=== PATIENT | female | born 1995 | race Hispanic/Latino ===

== ENCOUNTER 2024-10-21 19:57 | Emergency (ER) | payer SELFPAY ==
[~2024-10-21] VITALS: Ht 154.9 cm; Wt 108.4 kg
[2024-10-21 20:36] LABS: BASOPHILS # (AUTO) 0.07 K/uL (0.00-0.20); BASOPHILS % (AUTO) 0.6 % (0.0-5.0); EOSINOPHILS # (AUTO) 0.22 K/uL (0.00-0.70); HEMATOCRIT 38.7 % (36-48); IMMATURE GRANULOCYTE ABSOLUTE 0.04 K/uL (0-1); LYMPHOCYTES # (AUTO) 3.2 K/uL (1.0-4.8); LYMPHOCYTES % (AUTO) 29.5 % (21.0-51.0); MEAN CORPUSCULAR HEMOGLOBIN 29.4 pg (27.0-33.0); MEAN CORPUSCULAR HGB CONC 33.1 g/dL (32.0-36.0); MEAN CORPUSCULAR VOLUME 88.8 fL (79-99); MONOCYTES # (AUTO) 0.6 K/uL (0.1-1.0); MONOCYTES % (AUTO) 5.6 % (3.0-13.0); NEUTROPHILS # (AUTO) 6.7 K/uL (1.8-7.7); NEUTROPHILS % (AUTO) 61.9 % (40.0-77.0); PLATELET COUNT (AUTO) 312 K/uL (130-400); RED BLOOD CELL COUNT(AUTO) 4.36 MIL/uL (4.00-5.50); WHITE BLOOD COUNT (AUTO) 10.8 K/uL (4.8-10.8)
--- NOTE | 2024-10-21 20:44 | HMCIMG ---
Exam Type: US ABDOMINAL RUQ\E\LTD Clinical Information: Adominal Pain Comparison: None Findings: The liver shows fatty infiltration and is enlarged, measuring 16.6 cm and is otherwise unremarkable. Doppler evaluation shows patent portal and hepatic veins. The gallbladder shows no significant abnormalities. Specifically, no calculi are seen. No bile duct dilatation is noted. The gallbladder wall measures 2 mm. The common bile duct measures 5 mm. The right kidney measures 10.7 x 5.2 cm- it shows no hydronephrosis or calculi, masses or other abnormalities. The pancreas is suboptimally visualized.. The aorta and inferior vena cava show no significant abnormalities. IMPRESSION: FATTY LIVER INFILTRATION AND HEPATOMEGALY. OTHERWISE NORMAL RIGHT UPPER QUADRANT ABDOMINAL ULTRASOUND.
[2024-10-21 20:47] LABS: CREATININE 0.9 mg/dL (0.5-1.0); POTASSIUM 3.4 mmol/L (3.5-5.1)
[2024-10-21] MEDS: PANTOPrazole 40 MG/VIAL IVP ONE (20:48)
[2024-10-21] MEDS: 0.9%NACL 1000ML 1,000 ML IV ONE (20:48)
[2024-10-21] MEDS: ondanSETRON 4MG INJ IVP ONE (20:49)
[2024-10-21] MEDS: morPHINE 4 MG SYG IVP ONE (20:49)
[2024-10-21 20:54] LABS: ALBUMIN 3.5 g/dL (3.5-5.0); BILIRUBIN,DIRECT 0.2 mg/dL (0.0-0.3); BILIRUBIN,TOTAL 0.4 mg/dL (0.2-1.0); TOTAL PROTEIN, SERUM 7.7 g/dL (6.0-8.3)
--- NOTE | 2024-10-21 22:34 | ERN ---
ED Note History of Present Illness Stated Complaint: ABD PAIN Chief Complaint: Abdominal Pain Time Seen by MD: 19:59 Time Seen by Midlevel: 19:59 Dictation: The Patient is a 29-year-old female with no past medical history who presents to the emergency department with complaints of epigastric abdominal pain associated with nausea onset 30 minutes prior to arrival after eating chicken in a gets a and fries. Patient denies any constipation, diarrhea, fevers. Allergies: Coded Allergies: No Known Allergies (Unverified Allergy, Unknown, 10/21/24) Home Meds Active Scripts Pantoprazole Sodium (Pantoprazole Sodium) 20 Mg Tablet.dr, 1 TAB PO DAILY for 30 Days, #30 TAB 0 Refills Prov:CARITO ROBERTO KARO 10/21/24 Past Medical History Past Medical History: No Pertinent History Surgical History: None LMP: Oct 10, 2024 RN Note Reviewed/Agreed w/PFSH: Yes Review of System Dictation Constitutional: Negative for fever,chills, and weight loss Eyes: Negative for injury, pain,redness, and discharge ENT: Negative for injury,pain or swelling Cardiovascular: Negative for chest pain, palpitations, and edema Respiratory: Negative for shortness of breath, cough, and wheezing, Abdomen/GI: Negative for vomiting, diarrhea, and constipation positive for abdominal pain, nausea Back: Negative for injury and pain : Negative for injury, bleeding and discharge MS/Extremity: Negative for injury and deformity Skin: Negative for rash, and discoloration Neuro: Negative for headache, weakness, numbness, tingling, and seizure Psych: Negative for suicide ideation, homicidal ideation, and hallucinations Initial Vital Sign VS Vital Signs Date Time Temp Pulse Resp B/P (MAP) Pulse Ox O2 Delivery O2 Flow Rate FiO2 10/21/24 20:02 98.4 81 20 137/106 100 Room Air 10/21/24 20:10 0 21 Physical Exam Dictation Vital Signs reviewed General Appearance: Alert, oriented x 3, no acute distress, well developed, nourished. Head and Face: non-traumatic. Eyes: PERRL, pink conjunctivas, eyelid no trauma, anterior chamber with arcus senilis. Ears: Pinnas intact and no signs of trauma or erythema ear canals clear and no discharge TM no erythema Nose: No discharge, no bleeding. Oropharynx: Mouth normal, tongue pink. pharynx clear,no erythema, tonsils no exudates, no abscesses noted, mucous membrane moist Neck: Supple, non-tender, no thyromegaly, no masses, no JVD, no bruits Breast:Deferred Chest:No tenderness, no crepitus, no paradoxical movement, no retractions Lungs:Clear, well-ventilated, symmetric, no rales, no wheezing, no rhonchi, no stridor, good breath sounds bilaterally Heart: Regular rate, regular rhythm, no murmur, no gallops Vascular: no peripheral edema, Abdomen: Soft, positive bowel sounds, nondistended, no guarding, Epigastric tenderness,, no rebound, no masses no hepatomegaly, no splenomegaly, no Mullins's sign, no hernias. Rectal: Deferred Genital: Deferred Neurological: Normal speech, motor function intact, sensory function intact Musculoskeletal: Neck nontender, full range of motion, back nontender, full range of motion, Extremities: nontender, full range of motion Skin: Color pink, dry, no turgor, no rash, no lacerations, no abrasions, no contusions. Lymphatic: Deferred Results (Laboratory/Radiology) Laboratory/Radiology Laboratory Tests Test 10/21/24 20:21 10/21/24 22:52 White Blood Count 10.8 K/uL (4.8-10.8) Red Blood Count 4.36 MIL/uL (4.00-5.50) Hemoglobin 12.8 g/dL (12.0-16.0) Hematocrit 38.7 % (36-48) Mean Corpuscular Volume 88.8 fL (79-99) Mean Corpuscular Hemoglobin 29.4 pg (27.0-33.0) Mean Corpuscular Hemoglobin Concent 33.1 g/dL (32.0-36.0) Red Cell Distribution Width 13.0 % (11.0-15.5) Platelet Count 312 K/uL (130-400) Mean Platelet Volume 9.9 fL (7.5-10.5) Immature Granulocyte % (Auto) 0.4 % (0-1) Neutrophils (%) (Auto) 61.9 % (40.0-77.0) Lymphocytes (%) (Auto) 29.5 % (21.0-51.0) Monocytes (%) (Auto) 5.6 % (3.0-13.0) Eosinophils (%) (Auto) 2.0 % (0.0-8.0) Basophils (%) (Auto) 0.6 % (0.0-5.0) Neutrophils # (Auto) 6.7 K/uL (1.8-7.7) Lymphocytes # (Auto) 3.2 K/uL (1.0-4.8) Monocytes # (Auto) 0.6 K/uL (0.1-1.0) Eosinophils # (Auto) 0.22 K/uL (0.00-0.70) Basophils # (Auto) 0.07 K/uL (0.00-0.20) Absolute Immature Granulocyte (auto 0.04 K/uL (0-1) Nucleated Red Blood Cells 0.0 % (0.0-0.19) Sodium Level 139 mmol/L (136-145) Potassium Level 3.4 mmol/L (3.5-5.1) L Chloride Level 103 mmol/L (101-111) Carbon Dioxide Level 28 mmol/L (21-32) Blood Urea Nitrogen 9 mg/dL (7-18) Creatinine 0.9 mg/dL (0.5-1.0) Glomerular Filtration Rate Calc 88 mL/min (>90) Random Glucose 112 mg/dL (70-105) H Total Calcium 9.0 mg/dL (8.5-10.1) Total Bilirubin 0.4 mg/dL (0.2-1.0) Direct Bilirubin 0.2 mg/dL (0.0-0.3) Aspartate Amino Transf (AST/SGOT) 33 U/L (10-37) Alanine Aminotransferase (ALT/SGPT) 37 U/L (12-78) Alkaline Phosphatase 84 U/L (50-136) Total Creatine Kinase 48 U/L (21-232) Troponin I High Sensitivity < 4 ng/L (4-50) L Total Protein 7.7 g/dL (6.0-8.3) Albumin 3.5 g/dL (3.5-5.0) Lipase 49 U/L (16-77) Urine Color COLORLESS (YELLOW) Urine Appearance CLEAR (CLEAR) Urine pH 7.0 (5.0-8.0) Urine Specific Ronald 1.008 (1.001-1.031) Urine Protein NEGATIVE mg/dL (NEGATIVE) Urine Glucose (UA) NEGATIVE mg/dL (NEGATIVE) Urine Ketones NEGATIVE mg/dL (NEGATIVE) Urine Occult Blood NEGATIVE (NEGATIVE) Urine Nitrate NEGATIVE (NEGATIVE) Urine Bilirubin NEGATIVE mg/dL (NEGATIVE) Urine Urobilinogen 0.2 mg/dL (0.2-1.0) Urine Leukocyte Esterase NEGATIVE Shruthi/uL Urine HCG, Qualitative NEGATIVE (NEGATIVE) REASON: Adominal Pain ORDERING PHYSICIAN: CARITO ROBERTO PROCEDURE: [id number] - US ABDOMINAL RUQ\LTD Exam Type: US ABDOMINAL RUQ\E\LTD Clinical Information: Adominal Pain Comparison: None Findings: The liver shows fatty infiltration and is enlarged, measuring 16.6 cm and is otherwise unremarkable. Doppler evaluation shows patent portal and hepatic veins. The gallbladder shows no significant abnormalities. Specifically, no calculi are seen. No bile duct dilatation is noted. The gallbladder wall measures 2 mm. The common bile duct measures 5 mm. The right kidney measures 10.7 x 5.2 cm- it shows no hydronephrosis or calculi, masses or other abnormalities. The pancreas is suboptimally visualized.. The aorta and inferior vena cava show no significant abnormalities. IMPRESSION: FATTY LIVER INFILTRATION AND HEPATOMEGALY. OTHERWISE NORMAL RIGHT UPPER QUADRANT ABDOMINAL ULTRASOUND. Labs Reviewed?: Yes EKG: (+) rhythm (Sinus rhythm) EKG Comment: Date:10/21/2024 Time:2041 Ventricular rate:73 NV interval:131 QRS duration:92 QT/QTc:432 EKG interpretation: Sinus rhythm Reviewed by ED Attending no STEMI ED Course ED Course Orders Procedure Category Date Status Time Cbc With Differential LAB 10/21/24 Complete 20:14 Troponin I High LAB 10/21/24 Complete Sensitivity 20:14 ,Urine Test LAB 10/21/24 Complete 20:14 Urinalysis Profile LAB 10/21/24 Complete 20:14 Us Abdominal Ruq\Ltd US 10/21/24 Resulted 20:14 12 Lead Ekg Tracing- EKG 10/21/24 Logged Technical 20:14 0.9%Nacl 1000ml (Ns PHA 10/21/24 Complete 1000ml) 20:30 Morphine 4mg Syg PHA 10/21/24 Complete (Morphine 4mg Syg) 20:30 Ondansetron 4mg Inj PHA 10/21/24 Complete (Zofran 4mg Inj) 20:30 Pantoprazole 40mg Inj PHA 10/21/24 Complete (Protonix 40mg Inj 20:30 Creatine Kinase, Total LAB 10/21/24 Complete 20:14 Lipase LAB 10/21/24 Complete 20:14 Basic Metabolic Panel LAB 10/21/24 Complete 20:14 Hepatic Function Panel LAB 10/21/24 Complete 20:14 Current Medications Medications (Trade) Dose Ordered Sig/Jorje Route PRN Reason Start Time Stop Time Status Last Admin Dose Admin Morphine Sulfate (morPHINE 4MG SYG) 4 mg ONCE ONCE IVP 10/21/24 20:30 10/21/24 20:31 DC 10/21/24 20:49 Ondansetron HCl (zoFRAN 4MG INJ) 4 mg ONCE ONCE IVP 10/21/24 20:30 10/21/24 20:31 DC 10/21/24 20:49 Pantoprazole Sodium (PROTonix 40MG INJ) 40 mg ONCE ONCE IVP 10/21/24 20:30 10/21/24 20:31 DC 10/21/24 20:48 Sodium Chloride 1,000 ml @ 0 mls/hr ONCE ONCE IV 10/21/24 20:30 10/21/24 20:31 DC 10/21/24 20:48 Vital Signs Date Time Temp Pulse Resp B/P (MAP) Pulse Ox O2 Delivery O2 Flow Rate FiO2 10/21/24 21:23 78 19 130/74 99 Room Air* 0 21 10/21/24 20:10 98.4 76 20 124/77 99 Room Air* 0 21 10/21/24 20:02 98.4 81 20 137/106 100 Room Air Medical Decision Making MDM The Patient is a 29-year-old female with no past medical history who presents to the emergency department with complaints of epigastric abdominal pain associated with nausea onset 30 minutes prior to arrival after eating chicken in a gets a and fries. Patient denies any constipation, diarrhea, fevers. CBC showed no leukocytosis, no anemia,, chemistry showed mild hypokalemia, negative lipase, negative troponin, normal renal function, normal liver enzymes, ultrasound revealed no gallbladder stones. Fatty liver. Urinalysis unremarkable Patient reassessed and reports no longer having anymore abdominal pain. Patient in no acute distress, stable vital signs. We will be discharged to follow up with PCP. Differential diagnosis: Gastritis, gastroenteritis, electrolyte imbalance, biliary colic Need for hospitalization: Patient does not meet criteria for hospitalization. There are no social concerns with this patient. DX & DISP Disposition: Discharge Departure Impression: Primary Impression: Gastritis Condition: Stable Scripts Pantoprazole Sodium (Pantoprazole Sodium) 20 Mg Tablet. 1 TAB PO DAILY for 30 Days, #30 TAB 0 Refills Prov: CARITO ROBERTO 10/21/24 Additional Instructions: Please avoid eating any spicy foods that can exacerbate your symptoms. Avoid going to bed right after eating. Take medications as prescribed. If symptoms worsen please return to ER. FOLLOW-UP WITH PRIMARY CARE PROVIDER IN 1 TO 2 DAYS. TAKE MEDICATIONS DIRECTED HERE IN THE EMERGENCY ROOM. OKAY TO CONTINUE HOME MEDICATIONS UNLESS OTHERWISE DISCUSSED DURING YOUR VISIT IN THE EMERGENCY ROOM TODAY. RETURN TO YOUR NEAREST EMERGENCY ROOM IF SYMPTOMS WORSEN OR IF THERE IS NO IMPROVEMENT. CALL 911 IF YOU NEED IMMEDIATE ASSISTANCE. TAKE TYLENOL OR MOTRIN [id number] NEEDED AND IF NO CONTRAINDICATIONS ARE PRESENT. INCREASE ORAL HYDRATION. A WOUND CULTURE OR URINE CULTURE WAS ORDERED HERE IN THE EMERGENCY ROOM DEPARTMENT PLEASE FOLLOW-UP WITH PRIMARY CARE PROVIDER AND ADVISE THEM TO GET REPEAT PORTS FROM OUR FACILITY. IF YOU HAD ANY RAYMOND WRAP/SPLINTS THAT WERE APPLIED HERE, PLEASE DO NOT REMOVE THEM UNTIL YOU SEE YOUR PRIMARY CARE OR SPECIALTY. Referrals: SELF,REFERRAL (PCP) Time of Disposition: 23:36 I have reviewed the case, and I agree with, Diagnosis and Plan CARITO ROBERTO Oct 21, 2024 22:34
[2024-10-21] MEDS ORDERED: PANT20TA18 PO (23:08)
[2024-10-21 23:25] LABS: ADD UA MICROSCOPIC NO; APPEARANCE,URINE CLEAR (CLEAR); BILIRUBIN,URINE NEGATIVE (NEGATIVE); COLOR,URINE COLORLESS (YELLOW); GLUCOSE, URINE (UA) NEGATIVE (NEGATIVE); KETONES,URINE NEGATIVE (NEGATIVE); LEUKOCYTE ESTERASE ,URINE NEGATIVE Leu/uL (NEGATIVE); NITRATE,URINE NEGATIVE (NEGATIVE); OCCULT BLOOD,URINE NEGATIVE (NEGATIVE); PROTEIN,URINE NEGATIVE (NEGATIVE); UROBILINOGEN,URINE 0.2 mg/dL (0.2-1.0)
[2024-10-21 23:28] LABS: HCG,QUALITATIVE URINE NEGATIVE (NEGATIVE)
[2024-10-21 23:42] VITALS: BP 122/83; PULSE 81; RESP 19; TEMP 98.6; O2SAT 99
--- NOTE | 2024-10-22 06:33 | EKG ---
[facility] Test Date: 2024-10-21 Test Time: 20:42:29 Pat Name: NATANAEL HOWARD Department: ED Room: Gender: F Manager Country: [id number] : 1995 Requested By: CARITO ROBERTO Order Number: [id number] Reading MD: Bronson Sloan Measurements Intervals [place] Rate: 73 P: 33 [place]: 131 QRS: -3 QRSD: 92 T: 25 QT: 390 QTc: 432 Interpretive Statements Sinus rhythm Inferior infarct, old No previous ECG available for comparison Electronically Signed On 10-22-2024 11:20:05 CDT by Bronson Sloan Please click the below link to view image of tracing.
== END 2024-10-21 23:44 | disposition home or self-care (01) ==
LOC: EDH 19:57
DX: K29.70 Gastritis, unspecified, without bleeding (principal); Z79.899 Other long term (current) drug therapy
CPT/HCPCS: 99285; 96374; 76705; 96375; 96361; 82550; 80076; 84484; 80048; 83690; 85025; 81003; 81025; 36415; 93005; J7030; J2405; J2270; J2470